=== PATIENT | male | born 1965 | race Caucasian/White ===

== ENCOUNTER 2023-03-20 06:08 | Outpatient (REF) | payer OTHER, SELFPAY ==
--- NOTE | ~2023-03-20 | US_ITS ---
EXAMINATION: US SCROTUM CLINICAL INFORMATION: Lower abdominal and scrotal pain. COMPARISON: None available. TECHNIQUE: A sonogram of the scrotum was performed assessing ramirez-scale appearance and color Doppler flow. Spectral Doppler analysis of the arterial and venous flow were performed in the testes bilaterally. FINDINGS: RIGHT: Right testicle measures 3.9 x 2.7 x 3.3 cm, volume 18.2 mL. No focal testicular parenchymal lesions are visualized. Spectral Doppler analysis of the arterial and venous flow is normal in the right testis. Moderate complex right hydrocele. Right epididymal head cyst measuring 2.4 x 1.6 x 1.6 cm. No right varicocele is seen. Right epididymal Doppler flow is normal. LEFT: Left testicle measures 3.9 x 2.5 x 3.3 cm, volume 16.8 mL. 4 x 4 x 5 mm hypoechoic avascular lesion in the upper left testicle suggestive of a mass. Spectral Doppler analysis of the arterial and venous flow is normal in the left testis. Small left hydrocele. Left epididymal head is normal in size. No left varicocele is seen. Left epididymal Doppler flow is normal. There is a left inguinal hernia that extends into the superior scrotum. There is question of a smaller more superior medial left groin hernia adjacent to the pubic bone. US/US scrotum IMPRESSION: Right: Moderate complex hydrocele. Large 1.6 x 2.4 cm epididymal head cyst. Left: 4 x 5 mm hypoechoic mass superior left testicle. Urology consultation recommended. Small left hydrocele. Left inguinal hernia extending into the scrotum. Question smaller hernia adjacent to the left pubic bone. Findings will be communicated by the [facility] shock absorber installer.
== END 2023-03-20 06:09 | disposition home or self-care (01) ==
LOC: HO.UMASIMG 06:08
PROVIDERS: Visit Provider Family Medicine Sports Medicine
DX: R10.9 Unspecified abdominal pain (principal); R31.9 Hematuria, unspecified
CPT/HCPCS: 76870